=== PATIENT | female | born 1955 | race Caucasian/White ===

== ENCOUNTER → 2016-11-26 | Outpatient (CLI) | payer MEDICARE, OTHER ==
[~2016-11-26] MED LIST: AMOXICILLIN875 MG PO; AZOR 10 MG-40 M1 TAB PO; BACTROBAN21 NS; BENADRYL25 MG PO; BYSTOLIC20 MG PO; BYSTOLIC5 MG PO; CATAFLAM50 MG PO; CEFANEX500 MG PO; ENDOCET PO; GABAPENTIN300 M1 PO; GABAPENTIN600 MG PO; INDERAL 10MG10 MG PO; LASIX40 MG PO; LIDODERM PATCH TP; LISINOPRIL20 MG PO; METHADONE5 MG PO; MOTRIN 800800 MG/TAB PO; NORTRIPTYLINE H50 MG PO; PERCOCET 325 MG1 TA2 PO; PERCOCET 5/321 UDTAB PO; PERCOCET 500 MG1 TAB PO; PREDNISONE10 MG PO; PRINIVIL20 MG PO; SEPTRA DS 8001 TAB PO; SKELAXIN800 MG PO; TRILEPTAL300 MG PO; ZANAFLEX 4MG TAB4 MG PO
== END ==
LOC: MC.RAD 14:56
DX: Z12.31 Encounter for screening mammogram for malignant neoplasm of breast (principal); Z80.3 Family history of malignant neoplasm of breast

== ENCOUNTER → 2017-11-12 | Outpatient (CLI) | payer MEDICARE, OTHER | LOC: COL.VAS 13:00 | DX: I08.8 Other rheumatic multiple valve diseases (principal) ==

== ENCOUNTER → 2021-07-29 | Outpatient (CLI) | payer MEDICARE, OTHER | LOC: MC.RAD 11:30 | DX: Z12.31 Encounter for screening mammogram for malignant neoplasm of breast (principal) ==

== ENCOUNTER 2021-09-02 15:25 | Emergency (ER) | payer MEDICARE ==
[~2021-09-02] VITALS: Ht 157.5 cm; Wt 88.6 kg
[2021-09-02 15:31] VITALS: TEMP 98.9
[2021-09-02 16:37] VITALS: BP 150/61; PULSE 56
== END 2021-09-02 16:39 | disposition home or self-care (01) ==
LOC: COL.ER 15:25
DX: S52.501A Unspecified fracture of the lower end of right radius, initial encounter for closed fracture (principal); S52.601A Unspecified fracture of lower end of right ulna, initial encounter for closed fracture; I10 Essential (primary) hypertension; Z91.040 Latex allergy status; Z79.899 Other long term (current) drug therapy; W01.198A Fall on same level from slipping, tripping and stumbling with subsequent striking against other object, initial encounter
CPT/HCPCS: Q4050